=== PATIENT | female | born 1970 | race American Indian/Alaskan Native ===

== ENCOUNTER 2018-05-15 13:16 | Emergency (ER) | payer MEDICAID ==
--- NOTE | 2018-05-15 13:28 | Emergency Department Report ---
HPI - General Chief Complaint: Neuro Symptoms/Deficit Time Seen by Provider: 05/15/18 13:23 - HPI HPI: 48 year-old female presents to the emergency department via EMS from home with complaint of stuttering, generalized weakness and some tingling in the hands have been going on since "just before 1." The patient is concerned that she could've had a stroke as she says that she has a previous history of stroke that left her with issues regarding stuttering. Patient says that she started developing the paresthesias of the hands in route. She did not take anything and did not receive anything for her symptoms prior to presentation. No recent travel or sick contacts at home. ED Past Medical Hx - Medications Home Medications: Home Medications Medication Instructions Recorded Confirmed Last Taken Type Aspirin [Aspirin BABY CHEW TAB] 81 mg PO QDAY 05/15/18 05/15/18 Unknown History Carvedilol [Coreg] 12.5 mg PO BID 05/15/18 05/15/18 Unknown History Clopidogrel [Plavix] 75 mg PO QDAY #30 tablet 05/15/18 Unknown Rx ISOSORBIDE MONOnitrate [Imdur ER] 30 mg PO DAILY 05/15/18 05/15/18 Unknown History amLODIPine [Norvasc] 10 mg PO DAILY 05/15/18 05/15/18 Unknown History ED Review of Systems ROS: Stated complaint: DIFFICULTY SPEAKING Other details as noted in HPI Comment: All other systems reviewed and negative Constitutional: denies: chills, fever Eyes: denies: eye pain, eye discharge, vision change ENT: denies: ear pain, throat pain Respiratory: denies: cough, shortness of breath, wheezing Cardiovascular: denies: chest pain, palpitations Gastrointestinal: denies: abdominal pain, nausea, diarrhea Genitourinary: denies: urgency, dysuria, discharge Musculoskeletal: denies: back pain, joint swelling, arthralgia Skin: denies: rash, lesions Neurological: weakness, paresthesias, other (stuttering speech) Physical Exam - Physical Exam Physical Exam: GENERAL: The patient is well-developed well-nourished. HENT: Normocephalic. Atraumatic. Patient has moist mucous membranes. EYES: Extraocular motions are intact. Pupils equal reactive to light bilaterally. NECK: Supple. Trachea is benign. CHEST/LUNGS: Clear to auscultation. There is no respiratory distress noted. HEART/CARDIOVASCULAR: Regular. There is no tachycardia. There is no murmur. ABDOMEN: Abdomen is soft, nontender. Patient has normal bowel sounds. There is no abdominal distention. SKIN: Skin is warm and dry. NEURO: The patient is awake, alert, and oriented. The patient is cooperative. Patient has stuttering speech. She has bilateral lower extremity weakness with leg drift that hits the gurney. MUSCULOSKELETAL: There is no tenderness or deformity. There is no evidence of acute injury. ED Course - Reevaluation(s) Reevaluation #1: 05/15/18 13:45 NIH Stroke Scale/Score (NIHSS) RESULT SUMMARY: 4 points NIH Stroke Scale INPUTS: 1A: Level of consciousness > 0 = Alert; keenly responsive 1B: Ask month and age > 0 = Both questions right 1C: 'Blink eyes' & 'squeeze hands' > 0 = Performs both tasks 2: Horizontal extraocular movements > 0 = Normal 3: Visual tee > 0 = No visual loss 4: Facial palsy > 0 = Normal symmetry 5A: Left arm motor drift > 0 = No drift for 10 seconds 5B: Right arm motor drift > 0 = No drift for 10 seconds 6A: Left leg motor drift > 2 = Drift, hits bed 6B: Right leg motor drift > 2 = Drift, hits bed 7: Limb Ataxia > 0 = No ataxia 8: Sensation > 0 = Normal; no sensory loss 9: Language/aphasia > 0 = Normal; no aphasia 10: Dysarthria > 0 = Normal 11: Extinction/inattention > 0 = No abnormality - Consultations Consultation #1: 05/15/18 13:52 I spoke with the telemedicine neurologist on-call, Dr. Eduardo, who is currently seeing the patient in the room via air sampling and monitoring. 05/15/18 14:15 The patient was seen by Dr. Eduardo in the room and then Dr. Eduardo called back and does not feel the patient is a TPA candidate. The patient's stuttering is improved and they were able to improve her muscle strength and get her up to bear weight and ambulate. He says that this could be a TIA however and therefore she should be admitted for further workup. ED Medical Decision Making - Lab Data Result diagrams: 05/15/18 13:34 05/15/18 13:34 - EKG Data -: EKG Interpreted by [facility] EKG shows normal: sinus rhythm, axis, intervals, QRS complexes (q waves to anterior leads, LVH), ST-T waves Rate: normal - EKG Data When compared to previous EKG there are: previous EKG unavailable Interpretation: LVH, other (q waves to anterior leads) - Radiology Data Radiology results: report reviewed EXAM: CT HEAD/BRAIN WO CON HISTORY: neuro deficits lt; 6hrs or sx present upon awakening TECHNIQUE: CT of the head was performed. No intravenous contrast was administered. PRIORS: None. FINDINGS: There is no evidence of intracranial hemorrhage. There is no edema, mass effect or midline shift. There are no abnormal extra-axial fluid collections. The ventricles are appropriate for brain volume. There is no skull fracture seen. The visualized aspects of the sinuses are clear. IMPRESSION: There is no acute intracranial abnormality identified. Transcribed By: RAJNI Dictated By: ANAIS GARCIA MD Electronically Authenticated By: ANAIS GARCIA MD Signed Date/Time: 05/15/18 9815 - Medical Decision Making Patient presented as a code stroke secondary to lower extremity weakness and stuttering speech that started acutely around [address] of the head did not show any bleed, shift, mass or any acute process. Labs up and mostly unremarkable and do not show any etiology of her symptoms. She was seen by the telemedicine neurologist, Dr. Eduardo, who was able to witness that the patient is showing improvement. For this reason she does not appear to be a TPA candidate. He does recommend that the patient is admitted for further evaluation and probable MRI. Patient has been accepted for admission by the hospitalist, Dr. Arias. - Differential Diagnosis CVA, TIA, MS, hypoglycemia, dysrhythmia Critical Care Time: No Critical care attestation.: If time is entered above; I have spent that time in minutes in the direct care of this critically ill patient, excluding procedure time. ED Disposition Clinical Impression: Stuttering Lower extremity weakness Qualifiers: Laterality: bilateral Qualified Code(s): R29.898 - Other symptoms and signs involving the musculoskeletal system Hypertension Qualifiers: Hypertension type: essential hypertension Qualified Code(s): I10 - Essential ( primary) hypertension Disposition: OP ADMIT IP TO THIS HOSP Is pt being admited?: Yes Condition: Fair Instructions: Transient Ischemic Attack (ED), Self Care Measures After a Stroke (ED), Hypertension (ED) Prescriptions: Clopidogrel [Plavix] 75 mg PO QDAY #30 tablet Referrals: PRIMARY CARE, [Primary Care Provider] - 3-5 Days
[2018-05-15 13:40] LABS: Basophils % (Auto) 0.8 % (0.0-1.8); Eosinophils # (Auto) 0.1 K/mm3 (0.0-0.4); Eosinophils % (Auto) 2.6 % (0.0-4.3); Hematocrit 34.9 % (30.3-42.9); Hemoglobin 11.8 gm/dl (10.1-14.3); Lymphocytes # (Auto) 1.3 K/mm3 (1.2-5.4); Lymphocytes % (Auto) 25.2 % (13.4-35.0); Mean Corpuscular HGB Conc 34 % (30-34); Mean Corpuscular Hemoglobin 30 pg (28-32); Mean Corpuscular Volume 87 fl (79-97); Monocytes # (Auto) 0.5 K/mm3 (0.0-0.8); Monocytes % (Auto) 9.4 % (0.0-7.3); Platelet Count 209 K/mm3 (140-440); Red Blood Count 4.01 M/mm3 (3.65-5.03); Red Cell Distribution Width 16.4 % (13.2-15.2)
--- NOTE | 2018-05-15 13:42 | Cat Scan Report ---
FINAL REPORT EXAM: CT HEAD/BRAIN WO CON HISTORY: neuro deficits < 6hrs or sx present upon awakening TECHNIQUE: CT of the head was performed. No intravenous contrast was administered. PRIORS: None. FINDINGS: There is no evidence of intracranial hemorrhage. There is no edema, mass effect or midline shift. There are no abnormal extra-axial fluid collections. The ventricles are appropriate for brain volume. There is no skull fracture seen. The visualized aspects of the sinuses are clear. IMPRESSION: There is no acute intracranial abnormality identified.
[2018-05-15 13:51] LABS: INR 1.02 (0.87-1.13); Partial Thromboplastin Time 30.2 Sec. (24.2-36.6)
[2018-05-15 13:53] LABS: BUN/Creatinine Ratio 17; Blood Urea Nitrogen 17 mg/dL (7-17); Calcium 8.9 mg/dL (8.4-10.2); Hemolysis Index 23
--- NOTE | 2018-05-15 15:13 | Event Note ---
Date: 05/15/18 patient seen and examined Tingling and numbness in all 4 extremities which has resolved Neuro exam normal Had 2 srokes--one recently in December 2017. Was admitted to [facility] and discharged Wants to go home Diag TIA No TPA Cont ASA and Plavix Has appointment with Neuro on May 29 Asker her to get earlier appt
[2018-05-15 15:55] VITALS: BP 144/80
== END 2018-05-15 15:43 | disposition admitted as inpatient to this hospital (09) ==
LOC: ED 13:16
DX: I10 Essential (primary) hypertension (principal); R29.898 Other symptoms and signs involving the musculoskeletal system; F80.81 Childhood onset fluency disorder; Z79.82 Long term (current) use of aspirin; Z88.1 Allergy status to other antibiotic agents; Z88.8 Allergy status to other drugs, medicaments and biological substances
CPT/HCPCS: 36415; 70450; 80048; 82962; 84484; 85025; 85610; 85670; 85730; 93005; 93010; 99285

== ENCOUNTER 2018-05-21 18:48 | Emergency (ER) | payer MEDICAID ==
[2018-05-21 19:16] VITALS: BP 151/94
--- NOTE | 2018-05-21 20:19 | XRay Report ---
FINAL REPORT EXAM: XR KNEE 3V RT HISTORY: pain r/t fall TECHNIQUE: Frontal, lateral and oblique views right knee Comparison: None FINDINGS: There is no evidence of fracture or subluxation. The joint spaces are maintained. The soft tissues are unremarkable. IMPRESSION: 1. No evidence of fracture or subluxation.
[2018-05-21] MEDS ORDERED: TORADOL IM ONE (23:51)
--- NOTE | 2018-05-21 23:54 | Emergency Department Report ---
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 denies: numbness, tingling - Related Data Home Medications Medication Instructions Recorded Confirmed Last Taken Aspirin [Aspirin BABY CHEW TAB] 81 mg PO QDAY 05/15/18 05/15/18 Unknown Carvedilol [Coreg] 12.5 mg PO BID 05/15/18 05/15/18 Unknown ISOSORBIDE MONOnitrate [Imdur ER] 30 mg PO DAILY 05/15/18 05/15/18 Unknown amLODIPine [Norvasc] 10 mg PO DAILY 05/15/18 05/15/18 Unknown Previous Rx's Medication Instructions Recorded Last Taken Type Clopidogrel [Plavix] 75 mg PO QDAY #30 tablet 05/15/18 Unknown Rx Cyclobenzaprine [Flexeril] 10 mg PO BID PRN #20 tablet 05/22/18 Unknown Rx Menthol/Camphor [[place] 1 applicatio TP TID PRN #1 tube 05/22/18 Unknown Rx Ointment] Naproxen [Naprosyn] 500 mg PO BID #30 tablet 05/22/18 Unknown Rx Allergies Allergy/AdvReac Type Severity Reaction Status Date / Time amoxicillin [From Augmentin] AdvReac Unknown Verified 05/15/18 13:19 clavulanic acid AdvReac Unknown Verified 05/15/18 13:19 [From Augmentin] lisinopril AdvReac Unknown Verified 05/15/18 13:19 ED Review of Systems ROS: Stated complaint: RT LEG PAIN/FELL Other details as noted in HPI Constitutional: denies: chills, fever Eyes: denies: eye pain, eye discharge, vision change ENT: denies: ear pain, throat pain Respiratory: denies: cough, shortness of breath, wheezing Cardiovascular: denies: chest pain, palpitations Endocrine: no symptoms reported Gastrointestinal: denies: abdominal pain, nausea, diarrhea Genitourinary: denies: urgency, dysuria, discharge Musculoskeletal: myalgia. denies: back pain, joint swelling, arthralgia Skin: denies: rash, lesions Neurological: denies: headache, weakness, paresthesias Psychiatric: denies: anxiety, depression Hematological/Lymphatic: denies: easy bleeding, easy bruising ED Past Medical Hx - Past Medical History Hx Hypertension: Yes Hx CVA: Yes (TIA) - Surgical History Additional Surgical History: hysterectomy - Social History Smoking Status: Never Smoker Substance Use Type: None - Medications Home Medications: Home Medications Medication Instructions Recorded Confirmed Last Taken Type Aspirin [Aspirin BABY CHEW TAB] 81 mg PO QDAY 05/15/18 05/15/18 Unknown History Carvedilol [Coreg] 12.5 mg PO BID 05/15/18 05/15/18 Unknown History Clopidogrel [Plavix] 75 mg PO QDAY #30 tablet 05/15/18 Unknown Rx ISOSORBIDE MONOnitrate [Imdur ER] 30 mg PO DAILY 05/15/18 05/15/18 Unknown History amLODIPine [Norvasc] 10 mg PO DAILY 05/15/18 05/15/18 Unknown History Cyclobenzaprine [Flexeril] 10 mg PO BID PRN #20 tablet 05/22/18 Unknown Rx Menthol/Camphor [[place] 1 applicatio TP TID PRN #1 tube 05/22/18 Unknown Rx Ointment] Naproxen [Naprosyn] 500 mg PO BID #30 tablet 05/22/18 Unknown Rx ED Physical Exam - General Limitations: No Limitations General appearance: alert, in no apparent distress - Head Head exam: Present: atraumatic, normocephalic - Eye Eye exam: Present: normal appearance - ENT ENT exam: Present: mucous membranes moist - Neck Neck exam: Present: normal inspection - Respiratory Respiratory exam: Present: normal lung sounds bilaterally. Absent: respiratory distress - Cardiovascular Cardiovascular Exam: Present: regular rate, normal rhythm. Absent: systolic murmur, diastolic murmur, rubs, gallop - GI/Abdominal GI/Abdominal exam: Present: soft, normal bowel sounds - Rectal Rectal exam: Present: deferred - Extremities Exam Extremities exam: Present: full ROM, tenderness, normal capillary refill, joint swelling. Absent: pedal edema, calf tenderness - Expanded Lower Extremity Exam Right Knee exam: Present: full ROM, tenderness, swelling, pain w/ pronation/supination , full knee extension. Absent: abrasion, laceration, ecchymosis, deformity, crepidus, dislocation, erythema, effusion, posterior draw sign, pain/laxity with valgus, pain/laxity with varus Lower Leg exam: Present: normal inspection, full ROM. Absent: tenderness Ankle exam: Present: normal inspection, full ROM. Absent: tenderness Foot/Toe exam: Present: normal inspection, full ROM. Absent: tenderness Neuro vascular tendon exam: Present: no vascular compromise. Absent: pulse deficit, abnormal cap refill, motor deficit, sensory deficit, tendon deficit, extremity cold to touch, pallor, abnormal 2-point discrimination, decreased fine /light touch, foot drop, peroneal nerve deficit, significant pain with passive ROM of distal joint Gait: Positive: observed and limited by pain ED Course Vital Signs 05/21/18 19:13 Temperature 98.1 F Pulse Rate 84 Respiratory 18 Rate Blood Pressure 151/94 O2 Sat by Pulse 98 Oximetry ED Lower Extremity MDM - Radiology Data Radiology results: report reviewed, image reviewed normal knee xray no fracture no soft tissue injury - Medical Decision Making There is a right knee strain plan Ty wrap crutches and says muscle relaxants cryotherapy patient will follow PCP in 2-3 days patient verbalized understanding and agreement was L be DC'd home in stable condition at this Critical care attestation.: If time is entered above; I have spent that time in minutes in the direct care of this critically ill patient, excluding procedure time. ED Disposition Clinical Impression: Strain of right knee Qualifiers: Encounter type: initial encounter Qualified Code(s): S86.911A - Strain of unspecified muscle(s) and tendon(s) at lower leg level, right leg, initial encounter Disposition: DC-01 TO HOME OR SELFCARE Is pt being admited?: No Does the pt Need Aspirin: No Condition: Good Instructions: Knee Pain (ED) Prescriptions: Cyclobenzaprine [Flexeril] 10 mg PO BID PRN #20 tablet PRN Reason: Muscle Spasm Menthol/Camphor [[place] Ointment] 1 applicatio TP TID PRN #1 tube PRN Reason: Pain , Severe (7-10) Naproxen [Naprosyn] 500 mg PO BID #30 tablet Referrals: PRIMARY CARE, [Primary Care Provider] - 3-5 Days Forms: Work/School Release Form(ED) Time of Disposition: 00:03
== END 2018-05-22 00:30 | disposition home or self-care (01) ==
LOC: ED 18:48
DX: S86.911A Strain of unspecified muscle(s) and tendon(s) at lower leg level, right leg, initial encounter (principal); I10 Essential (primary) hypertension; Z86.73 Personal history of transient ischemic attack (TIA), and cerebral infarction without residual deficits; Z90.710 Acquired absence of both cervix and uterus; Z79.899 Other long term (current) drug therapy; Z88.1 Allergy status to other antibiotic agents; Z88.8 Allergy status to other drugs, medicaments and biological substances; W19.XXXA Unspecified fall, initial encounter; Y93.89 Activity, other specified; Y99.0 Civilian activity done for income or pay; Y92.69 Other specified industrial and construction area as the place of occurrence of the external cause
CPT/HCPCS: 73562; 96372; 99284; J1885